=== PATIENT | female | born 1990 | race African-American/Black ===

== ENCOUNTER 2018-09-18 13:07 | Emergency (ER) | payer OTHER ==
[~2018-09-18] VITALS: Ht 160 cm; Wt 52.2 kg
[2018-09-18 13:12] VITALS: BP 130/79; TEMP 98.8
== END 2018-09-18 14:19 | disposition home or self-care (01) ==
LOC: ED 13:07
DX: S93.492A Sprain of other ligament of left ankle, initial encounter (principal); W01.0XXA Fall on same level from slipping, tripping and stumbling without subsequent striking against object, initial encounter; Y92.89 Other specified places as the place of occurrence of the external cause
CPT/HCPCS: 99282